=== PATIENT | male | born 1995 | race Hispanic/Latino ===

== ENCOUNTER 2017-04-19 01:26 | Emergency (ER) | payer SELFPAY ==
--- NOTE | 2017-04-19 07:52 | RAD ---
KUB: INDICATIONS: History of constipation, with last bowel movements being 2-1/2 days ago. 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 COMPARISON: None. FINDINGS: There is a mild amount of retained stool within the colon. The bowel gas pattern is nonspecific but without overt evidence of obstruction. There is slight elevation of the right hemidiaphragm. No a cute osseous abnormality is evident. IMPRESSION: Mild amount of retained stool within the colon. POS: [facility]
== END 2017-04-19 02:54 | disposition home or self-care (01) ==
LOC: ERS 01:26
DX: K59.00 Constipation, unspecified (principal); I10 Essential (primary) hypertension
CPT/HCPCS: 74000

== ENCOUNTER 2017-12-02 03:00 | Emergency (ER) | payer SELFPAY ==
[2017-12-02] MEDS ORDERED: Ondansetron ODT 4 MG TAB ONE (03:27)
[2017-12-02] MEDS ORDERED: Adacel (T-DAP) 0.5 ML VIAL ONE (03:27)
--- NOTE | 2017-12-02 09:20 | RAD ---
RIGHT FOOT 3 VIEWS: Date: 12/02/17 HISTORY: Fall. Right foot injury. FINDINGS: Lisfranc joint alignment is anatomic. Pes planus apparent on the lateral view. Osteophytosis througho ut the foot. Laceration evident at the plantar surface. No acute fracture, dislocation, or radiopaque foreign bodies. IMPRESSION: 1. Soft tissue laceration plantar surface right foot. 2. Degenerative changes. 3. Pes planus. POS: [facility]
== END 2017-12-02 03:48 | disposition home or self-care (01) ==
LOC: ERS 03:00
DX: S91.311A Laceration without foreign body, right foot, initial encounter (principal); F10.129 Alcohol abuse with intoxication, unspecified; I10 Essential (primary) hypertension; Z23 Encounter for immunization; W18.31XA Fall on same level due to stepping on an object, initial encounter
CPT/HCPCS: 90471; 90715; Q0162

== ENCOUNTER 2017-12-05 11:01 | Emergency (ER) | payer SELFPAY ==
[2017-12-05] MEDS ORDERED: Ondansetron ODT 4 MG TAB ONE (11:33)
[2017-12-05 12:22] LABS: ALT (SGPT) 52 U/L (8-55); AST (SGOT) 36 U/L (5-34); Albumin 3.7 g/dL (3.5-5.0); Alkaline Phosphatase 62 U/L (40-150); Anion Gap 12 mmol/L (10-20); BUN (Urea Nitrogen) 19 mg/dL (8.9-20.6); Bilirubin, Total 0.3 mg/dL (0.2-1.2); Calc. Creatinine Clearance 0 mL/min (70-130); Calcium 9.3 mg/dL (7.8-10.44); Carbon Dioxide 23 mmol/L (22-29); Chloride 105 mmol/L (98-107); Estimated GFR-MDRD Greater than 90; Globulin 3.8 g/dL (2.4-3.5); Glucose 104 mg/dL (70-105); Lipase 22 U/L (8-78); Magnesium 1.9 mg/dL (1.6-2.6); Potassium 4.2 mmol/L (3.5-5.1); Protein, Total 7.5 g/dL (6.0-8.3); Sodium 136 mmol/L (136-145)
[2017-12-05 12:43] LABS: #Eosinphils 0.2 thou/uL (0.0-0.7); #Lymphocytes 1.9 thou/uL (1.20-3.40); #Monocytes 0.8 thou/uL (0.11-0.59); #Neutrophils 5.8 thou/uL (1.40-6.50); %Basophils 0.3 % (0.0-1.0); %Eosinophils 2.7 % (0.0-10.0); %Lymphocytes 21.5 % (21.0-51.0); %Monocytes 9.6 % (0.0-10.0); Hemoglobin 14.3 g/dL (14.0-18.0); Mean Corpuscular Hemoglobin 30.3 pg (27.0-31.0); Mean Corpuscular Volume 91.8 fl (80.0-94.0); Mean Platelet Volume 8.5 fL (7.4-10.4); Platelet Count 276 thou/uL (130-400); RBC Distribution Width 12.9 % (11.5-14.5); Red Blood Cell (RBC) Count 4.72 mill/uL (4.70-6.10); White Blood Cell (WBC) Count 8.8 thou/uL (4.8-10.8)
--- NOTE | 2017-12-05 13:05 | ULT ---
GALLBLADDER ULTRASOUND: HISTORY: Mid epigastric pain, related to bowel movement. COMPARISON: None. TECHNIQUE: Utilizing a Multi-Hertz transducer, sonographic imaging of the right upper quadrant is performed in t he longitudinal and transverse planes. FINDINGS: The pancreas is obscured by bowel gas. Increased echogenicity of the liver limits evaluation. The right hepatic lobe measures 22.9 cm. Suboptimal evaluation of the portal vein and common bile duct. No sonographic evidence of cholelithiasis, gallbladder wall thickening, or pericholecystic fluid. Ne gative Son sign. Limited evaluation of the right kidney. Grossly, no hydronephrosis. IMPRESSION: 1. Suboptimal evaluation. No definite sonographic evidence of cholecystitis. If there is concern, consider hepatobiliary iminodiacetic (HIDA) scan. 2. Hepatomegaly with heterogeneous echotexture of the liver, which may be due to hepatic steatosis o r hepatocellular disease. Consider MRI for further evaluation. POS: [facility]
== END 2017-12-05 13:03 | disposition home or self-care (01) ==
LOC: ERS 11:01
DX: S91.111A Laceration without foreign body of right great toe without damage to nail, initial encounter (principal); S91.114A Laceration without foreign body of right lesser toe(s) without damage to nail, initial encounter; R10.9 Unspecified abdominal pain; I10 Essential (primary) hypertension; F17.200 Nicotine dependence, unspecified, uncomplicated; X58.XXXA Exposure to other specified factors, initial encounter
CPT/HCPCS: 36415; 76705; 80053; 83690; 83735; 85025; 96372; Q0162